=== PATIENT | female | born 1980 | race Caucasian/White ===

== ENCOUNTER → 2017-02-13 | Outpatient (CLI) | payer OTHER ==
--- NOTE | 2017-02-13 14:53 | RAD ---
DATE: 02/13/2017 EXAM: BREAST LEFT, MAMMO LUBA DIAG BILAT HISTORY: Bilateral breast discharge. COMPARISON: None. The breast parenchyma shows scattered fibroglandular densities. Breast parenchyma level B. FINDINGS: Bilateral diagnostic mammogram: Bilateral 2-D and 3-D CC and MLO, symphysis views were obtained. There is an intramammary lymph node in the left breast. No suspicious mass, calcification or architectural distortion. Patient will proceed to diagnostic left breast ultrasound in area of prior reported dimpling which is no longer definitively identified. Diagnostic left breast ultrasound: Ultrasound in area of interest from 8:00 to 11:00 position in the left breast demonstrates no suspicious mass or fluid collection. The previously reported dimpling is no longer apparent. IMPRESSION: No suspicious finding in either breast or at the area of prior reported dimpling. BI-RADS CATEGORY: 1 NEGATIVE RECOMMENDED FOLLOW-UP: CLIN FOLLOW UP IMAGING CLINICALLY INDICATED Mammography is a sensitive method for finding small breast cancers, but it does not detect them all and is not a substitute for careful clinical examination. A negative mammogram does not negate a clinically suspicious finding and should not result in delay in biopsying a clinically suspicious abnormality. "Our facility is accredited by the [employer] Mammography Program."
== END | disposition home or self-care (01) ==
LOC: KCIC MAMMO 12:52
PROVIDERS: ATTEND Family Medicine
DX: N64.52 Nipple discharge (principal)
CPT/HCPCS: 76641; G0204; G0279; 77062; 77066